=== PATIENT | male | born 1940 | race Caucasian/White ===

== ENCOUNTER → 2019-06-09 | Outpatient (CLI) | payer OTHER ==
[2019-06-09 12:55] LABS: BLOOD UREA NITROGEN 18 mg/dL (7-20)
== END ==
LOC: OD 11:44
PROVIDERS: ATTEND Internal Medicine
DX: E11.9 Type 2 diabetes mellitus without complications (principal)
CPT/HCPCS: 36415; 82565; 83036; 84520

== ENCOUNTER → 2020-02-12 | Outpatient (CLI) | payer OTHER ==
--- NOTE | 2020-02-12 09:51 | RADIOLOGY REPORT (SQ) ---
EXAM DESCRIPTION: U/S ABD AORTIC SCREENING IMAGES COMPLETED DATE/TIME: 02/12/2020 9:35 am REASON FOR STUDY: ABN FINDINGS ON DIAGNOSTIC IMAGING R93.5 ABN FINDINGS ON DX IMAGING OF ABD REGION S, INC RETROPE COMPARISON: None. TECHNIQUE: Static and dynamic grayscale images acquired of the aorta and stored on PACs. Selected co tanvi Doppler and spectral images recorded. LIMITATIONS: None. FINDINGS: AORTIC CALIBER MAXIMAL PROXIMAL: 2.1 cm. MID: 2.1 cm. DISTAL: 1.8 cm. ILIAC DIAMETER RIGHT: 1.1 cm. LEFT: 1.1 cm. OTHER: No other significant finding. IMPRESSION: NO ABDOMINAL AORTIC ANEURYSM. COMMENT: Aortic aneurysm imaging followup: 2.1-2.5 cm Not AAA. No followup recommended. *Based upon the ACR White Paper in the J Am Brandy Radiol 2013;10 (10):789-794. *For aortas of maximum diameter of 2.6-2.9 cm meeting the criteria for AAA (?1.5 x proximal normal se gment) TECHNICAL DOCUMENTATION: JOB ID: [id number] 2010 [employer] All Rights Reserved Reading location - IP/workstation name: [email or web address]
== END ==
LOC: RAD 07:52
PROVIDERS: ATTEND Internal Medicine
DX: Z87.891 Personal history of nicotine dependence (principal); Z13.6 Encounter for screening for cardiovascular disorders; I71.4 Abdominal aortic aneurysm, without rupture
CPT/HCPCS: 76706